=== PATIENT | female | born 2000 | race Hispanic/Latino ===

== ENCOUNTER 2023-07-17 16:08 | Emergency (ER) | payer OTHER, SELFPAY ==
[~2023-07-17] VITALS: Ht 165.1 cm; Wt 54.9 kg
[2023-07-17] MEDS: NS 1,000 ML IV ONE (16:45)
[2023-07-17 16:51] LABS: HEMATOCRIT 34.2 % (36.0-47.0); HEMOGLOBIN 11.2 g/dl (12.0-15.5); MEAN CORPUSCULAR HEMOGLOBIN 26.7 pg (27.0-33.0); MEAN CORPUSCULAR HGB CONC 32.7 g/dl (32.0-36.5); MEAN CORPUSCULAR VOLUME 81.6 fl (80.0-96.0); PLATELET COUNT, AUTOMATED 223 10^3/uL (150-450); RED BLOOD COUNT 4.19 10^6/uL (4.00-5.40); WHITE BLOOD COUNT 5.6 10^3/uL (4.0-10.0)
[2023-07-17 17:21] LABS: BLOOD UREA NITROGEN 13 MG/DL (9-23); CARBON DIOXIDE LEVEL 26 MMOL/L (20-31); CHLORIDE LEVEL 107 MMOL/L (98-107); CREATININE FOR GFR 0.48 MG/DL (0.55-1.30); GLOMERULAR FILTRATION RATE > 60.0 (>60); GLUCOSE, FASTING 115 MG/DL (60-100); HCG, SERUM QUALITATIVE NEGATIVE (NEGATIVE); POTASSIUM SERUM 3.5 MMOL/L (3.5-5.1); SODIUM LEVEL 140 MMOL/L (136-145)
[2023-07-17 17:45] VITALS: O2SAT 96
[2023-07-17 18:00] VITALS: BP 111/59; O2SAT 98
[2023-07-17 18:09] VITALS: TEMP 99.1
== END 2023-07-17 18:20 | disposition home or self-care (01) ==
LOC: M ED 16:08 → EDBD 16:08 → M ED 18:20
DX: R55 Syncope and collapse (principal)

== ENCOUNTER 2023-09-15 12:56 | Emergency (ER) | payer OTHER, SELFPAY ==
[~2023-09-15] VITALS: Ht 165.1 cm; Wt 53.5 kg
[2023-09-15] MEDS ORDERED: PREN1TAB11 PO (13:13)
[2023-09-15 16:51] LABS: BASO % 0.2 % (0.0-1.0); EOS # 0.1 10^3/uL (0.0-0.5); EOS % 1.2 % (0.0-3.0); HEMATOCRIT 38.8 % (36.0-47.0); HEMOGLOBIN 12.6 g/dl (12.0-15.5); LYMPH # 1.7 10^3/uL (1.5-5.0); LYMPH % 20.9 % (24.0-44.0); MEAN CORPUSCULAR HEMOGLOBIN 26.7 pg (27.0-33.0); MEAN CORPUSCULAR HGB CONC 32.5 g/dl (32.0-36.5); MEAN CORPUSCULAR VOLUME 82.2 fl (80.0-96.0); MONO # 0.4 10^3/uL (0.0-0.8); MONO % 4.9 % (2.0-8.0); NEUTROPHILS % 72.2 % (36.0-66.0); PLATELET COUNT, AUTOMATED 183 10^3/uL (150-450); RED BLOOD COUNT 4.72 10^6/uL (4.00-5.40); WHITE BLOOD COUNT 8.2 10^3/uL (4.0-10.0)
[2023-09-15 17:10] LABS: BLOOD UREA NITROGEN 13 MG/DL (9-23); CALCIUM LEVEL 9.5 MG/DL (8.5-10.1); CARBON DIOXIDE LEVEL 26 MMOL/L (20-31); CHLORIDE LEVEL 104 MMOL/L (98-107); CREATININE FOR GFR 0.43 MG/DL (0.55-1.30); GLOMERULAR FILTRATION RATE > 60.0 (>60); GLUCOSE, FASTING 76 MG/DL (60-100); POTASSIUM SERUM 3.5 MMOL/L (3.5-5.1); SODIUM LEVEL 134 MMOL/L (136-145)
[2023-09-15 19:58] LABS: Trichomonas vaginalis (AMP) NOT DETECTED (NEGATIVE)
[2023-09-15 20:22] LABS: GC DNA AMPLIFICATION NEGATIVE (NEGATIVE)
[2023-09-15 21:14] VITALS: BP 102/60; TEMP 97.2; O2SAT 100
[2023-09-15] MEDS ORDERED: MICO45CR PV (21:25)
[2023-09-15] MEDS ORDERED: CEPH500C PO (21:25)
[2023-09-15] MEDS: CEPHALEXIN 500 MG CAP PO ONE (21:35)
== END 2023-09-15 21:47 | disposition home or self-care (01) ==
LOC: M ED 12:56
DX: O23.41 Unspecified infection of urinary tract in pregnancy, first trimester (principal); O23.591 Infection of other part of genital tract in pregnancy, first trimester; Z3A.09 9 weeks gestation of pregnancy